=== PATIENT | female | born 1995 | race Caucasian/White ===

== ENCOUNTER 2018-07-07 03:44 | Emergency (ER) | payer SELFPAY ==
[~2018-07-07] VITALS: Wt 50.8 kg
[~2018-07-07 03:44] MED LIST: BACTRIM DS 8001 TA1 PO; BIRTH CONTROL1 EAC1 PO; DIFLUCAN150 MG PO; KETOROLAC10 MG PO; NORCO 325 MG-51 TAB PO; PYRIDIUM200 M1 PO; TYLENOL W/CODEI1 TA2 PO; ZITHROMAX Z PA250 MG; ZOFRAN ODT4 MG SL; ZOFRAN4 MG PO
[2018-07-07 03:45] VITALS: BP 118/78
[2018-07-07 04:13] LABS: BILIRUBIN NEGATIVE (NEGATIVE); BLOOD NEGATIVE (NEGATIVE); CLARITY SL CLOUDY (CLEAR); COLOR YELLOW (YELLOW); GLUCOSE NEGATIVE (NEGATIVE); KETONE NEGATIVE (NEGATIVE); LEUKO ESTERASE 2+ (NEGATIVE); NITRITE NEGATIVE (NEGATIVE); PH 6.5 (5.0-9.0); UROBILINOGEN 0.2 E.U./dl (0.2-1.0)
[2018-07-07 04:25] LABS: BACTERIA 2+
[2018-07-07] MEDS ORDERED: SEPTDS PO (04:30)
== END 2018-07-07 04:45 | disposition home or self-care (01) ==
LOC: ED 03:44
PROVIDERS: Emergency Medicine
DX: N39.0 Urinary tract infection, site not specified (principal); Z88.8 Allergy status to other drugs, medicaments and biological substances; Z88.1 Allergy status to other antibiotic agents; Z79.899 Other long term (current) drug therapy; Z87.442 Personal history of urinary calculi

== ENCOUNTER 2019-03-03 17:54 | Emergency (ER) | payer BC ==
[~2019-03-03] VITALS: Ht 162.5 cm; Wt 49.9 kg
[~2019-03-03 17:54] MED LIST changes: +SEPTDS PO
[2019-03-03 17:55] VITALS: BP 119/75
[2019-03-03 18:59] LABS: BILIRUBIN NEGATIVE (NEGATIVE); BLOOD TRACE-INTACT (NEGATIVE); CLARITY CLEAR (CLEAR); COLOR YELLOW (YELLOW); GLUCOSE NEGATIVE (NEGATIVE); KETONE NEGATIVE (NEGATIVE); LEUKO ESTERASE NEGATIVE (NEGATIVE); NITRITE NEGATIVE (NEGATIVE); SPECIFIC GRAVITY 1.025 (1.005-1.030); UROBILINOGEN 0.2 E.U./dl (0.2-1.0)
[2019-03-03 19:13] LABS: BACTERIA TRACE; EPITHELIAL CELLS 0-2; RBC 0-2 rbc/hpf (0-2)
[2019-03-05 11:42] LABS: GONOCOCCUS BY NAA Positive (Negative)
== END 2019-03-03 19:38 | disposition home or self-care (01) ==
LOC: ED 17:54
PROVIDERS: Nurse Practitioner Family
DX: Z11.3 Encounter for screening for infections with a predominantly sexual mode of transmission (principal); Z79.899 Other long term (current) drug therapy; Z88.8 Allergy status to other drugs, medicaments and biological substances; Z88.1 Allergy status to other antibiotic agents

== ENCOUNTER 2019-07-12 07:03 | Emergency (ER) | payer MEDICAID ==
[~2019-07-12] VITALS: Ht 162.5 cm; Wt 49.0 kg
[2019-07-12 07:15] VITALS: BP 117/85
== END 2019-07-12 08:30 | disposition home or self-care (01) ==
LOC: ED 07:03
DX: Z32.02 Encounter for pregnancy test, result negative (principal); R10.30 Lower abdominal pain, unspecified; R19.7 Diarrhea, unspecified; R42 Dizziness and giddiness; R07.9 Chest pain, unspecified; R06.02 Shortness of breath; Z88.1 Allergy status to other antibiotic agents; Z88.8 Allergy status to other drugs, medicaments and biological substances; Z79.899 Other long term (current) drug therapy; Z87.442 Personal history of urinary calculi

== ENCOUNTER 2019-09-17 17:37 | Emergency (ER) | payer MEDICAID ==
[~2019-09-17] VITALS: Ht 162.5 cm; Wt 50.3 kg
[2019-09-17 18:39] LABS: BILIRUBIN NEGATIVE (NEGATIVE); BLOOD TRACE-INTACT (NEGATIVE); CLARITY CLEAR (CLEAR); COLOR YELLOW (YELLOW); GLUCOSE NEGATIVE (NEGATIVE); KETONE NEGATIVE (NEGATIVE); LEUKO ESTERASE NEGATIVE (NEGATIVE); NITRITE NEGATIVE (NEGATIVE); SPECIFIC GRAVITY >= 1.030 (1.005-1.030); UROBILINOGEN 0.2 E.U./dl (0.2-1.0)
[2019-09-17 19:07] LABS: BACTERIA TRACE; MUCOUS TRACE
[2019-09-17] MEDS ORDERED: FLAGYL500 MG PO (19:24)
[2019-09-19 18:07] LABS: GONOCOCCUS BY NAA Negative (Negative)
== END 2019-09-17 19:45 | disposition home or self-care (01) ==
LOC: ED 17:37
PROVIDERS: Physician Assistant
DX: Z20.2 Contact with and (suspected) exposure to infections with a predominantly sexual mode of transmission (principal); R10.9 Unspecified abdominal pain; N93.9 Abnormal uterine and vaginal bleeding, unspecified; F17.200 Nicotine dependence, unspecified, uncomplicated; Z79.899 Other long term (current) drug therapy; Z88.1 Allergy status to other antibiotic agents; Z88.8 Allergy status to other drugs, medicaments and biological substances

== ENCOUNTER → 2020-07-26 | Outpatient (CLI) | payer OTHER ==
[~2020-07-26] MED LIST changes: +FLAGYL500 MG PO
== END | disposition home or self-care (01) ==
LOC: COVID19 14:46
PROVIDERS: ATTEND Internal Medicine
DX: Z20.828 Contact with and (suspected) exposure to other viral communicable diseases (principal)

== ENCOUNTER 2021-01-21 00:09 | Emergency (ER) | payer OTHER ==
[~2021-01-21] VITALS: Wt 50.3 kg
[2021-01-21 01:59] VITALS: BP 104/70
[2021-01-21 02:52] LABS: BILIRUBIN Negative (Negative); BLOOD Negative (Negative); CLARITY Clear (Clear); COLOR Yellow (Yellow); GLUCOSE Negative (Negative); KETONE Negative (Negative); LEUKO ESTERASE 2+ (Negative); NITRITE Negative (Negative); UROBILINOGEN 0.2 E.U./dl (0.0-1.0)
[2021-01-21 03:02] LABS: WBC 16-20 wbc/hpf (0-5)
[2021-01-21] MEDS ORDERED: FLAGYL500 MG PO (04:03)
== END 2021-01-21 04:12 | disposition home or self-care (01) ==
LOC: ED 00:09
PROVIDERS: Emergency Medicine
DX: N76.0 Acute vaginitis (principal); Z88.8 Allergy status to other drugs, medicaments and biological substances; Z79.899 Other long term (current) drug therapy

== ENCOUNTER 2023-08-17 22:24 | Emergency (ER) | payer OTHER ==
[~2023-08-17] VITALS: Ht 162.5 cm; Wt 58.1 kg
[2023-08-17 22:36] VITALS: BP 118/78
== END 2023-08-18 00:28 | disposition home or self-care (01) ==
LOC: ED 22:24
DX: J11.1 Influenza due to unidentified influenza virus with other respiratory manifestations (principal); R07.81 Pleurodynia; Z88.0 Allergy status to penicillin; Z88.1 Allergy status to other antibiotic agents; Z88.8 Allergy status to other drugs, medicaments and biological substances; Z98.890 Other specified postprocedural states; Z20.822 Contact with and (suspected) exposure to COVID-19